=== PATIENT | male | born 1970 | race Caucasian/White ===

== ENCOUNTER 2023-09-03 09:28 | Day surgery (SDC) | payer BC ==
[2023-08-30 14:00] VITALS: BMI 28.7
[2023-09-03 11:40] VITALS: RESP 18; TEMP 97.1
[2023-09-03 11:51] VITALS: BP 107/76; PULSE 70
== END 2023-09-03 11:40 | disposition home or self-care (01) ==
LOC: FASU-ENDO 09:28
PROVIDERS: ATTEND Internal Medicine Gastroenterology
PROC: 0DJD8ZZ Inspection of Lower Intestinal Tract, Via Natural or Artificial Opening Endoscopic (ICD-10-PCS; principal; 2023-09-03 10:50)
DX: Z12.11 Encounter for screening for malignant neoplasm of colon (principal); K64.1 Second degree hemorrhoids
CPT/HCPCS: 82962